=== PATIENT | female | born 1965 | race Caucasian/White ===

== ENCOUNTER 2017-08-15 13:45 | Emergency (ER) | payer OTHER ==
[~2017-08-15] VITALS: Ht 154.9 cm; Wt 61.2 kg
[2017-08-15] MEDS ORDERED: LYRICA75 M1 ORAL (13:54)
[2017-08-15] MEDS ORDERED: SIMVASTATIN10 MG ORAL (13:54)
[2017-08-15] MEDS ORDERED: CYMBALTA30 MG ORAL (13:54)
[2017-08-15] MEDS ORDERED: HYDROCHLOROTHIA25 MG ORAL (13:54)
[2017-08-15] MEDS ORDERED: OMEPRAZOLE20 M2 ORAL (13:54)
[2017-08-15 14:01] VITALS: BP 159/66
[2017-08-15] MEDS ORDERED: Norco 5mg/325mg tab ORAL ONE (14:15)
--- NOTE | 2017-08-15 14:19 | Emergency Room Report ---
History of Present Illness General Chief Complaint: Pain Source: Patient Present Illness HPI 51-year-old female patient presents to ER complaining of right forearm and wrist pain since Sunday. Patient reports that she was working in her garden when suddenly she began to experience pain in her right wrist and forearm. Patient reports she has been icing her arm since that time without relief of symptoms. Patient reports lives in a woman's home and has household duties that she normally performs, states does not believe will be able to do due to pain, requesting work note. Patient reports history of fibromyalgia and connective tissue disorder, reports diagnosis was changed, currently being seen by youth director, states next appointment set for 3 months from now. Patient reports decreased range of motion secondary to pain. Patient denies other acute symptoms at this time. patient wants to know if we can perform MRI. Allergies: Coded Allergies: PENICILLINS (Verified Allergy, Unknown, 08/15/17) Patient History Past Medical History: see triage record Last Menstrual Period: 2006 Reviewed Nursing Documentation: PMH: Agreed; PSxH: Agreed Review of Systems All Other Systems: negative except mentioned in HPI Physical Exam Vital Signs Date Time Temp Pulse Resp B/P (MAP) Pulse Ox O2 Delivery O2 Flow Rate FiO2 08/15/17 13:48 98.8 99 18 159/66 96 Room Air 98.8 Sp02 EP Interpretation: reviewed, normal General Appearance: well appearing, no apparent distress, alert, GCS 15, non- toxic Head: normocephalic, atraumatic Eyes: bilateral eye normal inspection, bilateral eye PERRL ENT: hearing grossly normal, normal pharynx, no angioedema, normal voice, uvula midline, moist mucus membranes Neck: full range of motion Respiratory: lungs clear, normal breath sounds, no rhonchi, no respiratory distress, no accessory muscle use, no wheezing, speaking full sentences Cardiovascular #1: regular rate, rhythm, no edema Cardiovascular #2: 2+ radial (R), 2+ radial (L) Musculoskeletal: back normal, digits/nails normal, gait/station normal, decreased range of motion - secondary to pain, other - able to make fist, NVI, cap refill < 2 sec, positive Tru's tenderness, negative Tinel sign, no ecchymosis, no swelling, no snuffbox tenderness, tender Neurologic: alert, oriented x3, responsive, motor strength/tone normal, sensory intact Psychiatric: mood/affect normal Skin: no rash Lymphatic: no adenopathy Medical Decision Making PA Attestation Dr. Morales is my supervising Physician whom patient management has been discussed with. Diagnostic Impression: Primary Impression: Tenosynovitis, de Quervain ER Course Pt. presents to the ED c/o right wrist and forearm pain. Ddx considered but are not limited to fracture, sprain, strain, contusion, dislocation. Vital signs: are WNL, pt. is afebrile Ordered X-ray and pain medication. ER COURSE Provided with pain medication. CURES reviewed, will provide [place] in ER, will not discharge home with Rx for [place]. Patient reports has [place] at home still. Informed patient MRI not indicated for patient in ER, need outpatient referral as needed from PCP or orthopedist. An X-ray of the right wrist was ordered, results show no acute fracture, per the preliminary reading. Thumb spica manufactured Splint was applied to the right wrist and was checked afterwards by me showing good alignment and support with distal neurovascular functioning intact. Due to no acute injury or fall, informed patient injury likely due to repetitive use, probably irritation of tendon, needs rest, ice and NSAIDs for pain. follow-up with primary care provider and discuss further referral and treatment as needed. Patient instructed on RICE method: rest, ice, compression, elevation. Patient instructed to WBAT. Work note provided. Informed patient need note from PCP for longer than 3 days excused absence from work. Followup with primary care provider for medical clearance to return to activities. Discuss referral to ortho/pain management/PT as needed. Discuss further imaging with MRI/CT as needed. DISCHARGE: -Rx provided for Tylenol for pain symptoms. At this time pt. is stable for d/c to home. Patient is resting comfortably, in no acute distress, nontoxic appearing, talking without difficulty. Will provide printed patient care instructions, and any necessary prescriptions. Patient instructed to follow with primary care provider in 3 - 5 days and to request further orthopedic follow-up. Care plan and follow up instructions have been discussed with the patient prior to discharge. Take medications as directed. Patient questions asked and answered. Patient reports understanding and agreement to treatment plan. ER precautions given, patient instructed to return to ER immediately for any new or worsening of symptoms. - Please note that this Emergency Department Report was dictated using Dragon environmental protection specialist technology software, occasionally this can lead to erroneous entry secondary to interpretation by the dictation equipment. Other X-Ray Diagnostic Results Other X-Ray Diagnostic Results : X-Ray ordered: right wrist # of Views/Limited Vs Complete: 3 View Indication: Pain EP Interpretation: Yes PA Xray: Interpretation reviewed, by supervising MD, and agrees with findings. Interpretation: no dislocation, no soft tissue swelling, no fractures Impression: No acute disease PA Scribe Text Edgardo Edwards PA-C Last Vital Signs Date Time Temp Pulse Resp B/P (MAP) Pulse Ox O2 Delivery O2 Flow Rate FiO2 08/15/17 14:01 98.8 18 159/66 96 Room Air 98.8 08/15/17 13:48 99 Disposition: HOME, SELF-CARE Condition: Stable Scripts Acetaminophen* (TYLENOL EXTRA STRENGTH*) 500 Mg Tablet 500 MG ORAL Q8H PRN for Prn Headache/Temp > 101, #30 TAB 0 Refills Prov: Oziel Edwards 08/15/17 Referrals: NON PHYSICIAN (PCP) Patient Instructions: De Quervain Tenosynovitis, De Quervain's Tenosynovitis Surgical Release, Wrist Pain, [id number] Additional Instructions: Patient instructed to follow up with primary care provider and discuss further referral to orthopedics. Discuss referral to physical therapy and occupational therapy. Patient instructed on RICE method: rest, ice, compression, elevation. Patient instructed to WBAT Take medications as directed. Patient questions asked and answered. ER precautions given, patient instructed to return to ER immediately for any new or worsening of symptoms. Oziel Edwards August 15, 2017 14:19
--- NOTE | 2017-08-15 15:19 | Diagnostic Imaging Report ---
Clinical Indication:Pain Technique: 3 views of the right wrist Comparison: None Findings: No acute fractures. No dislocations. The joint spaces are preserved. Impression: Negative
[2017-08-15] MEDS ORDERED: TYLENOL EXTRA500 MG ORAL (15:32)
[2017-08-15 15:53] VITALS: BP 159/66
== END 2017-08-15 15:53 | disposition home or self-care (01) ==
LOC: EMR 14:13
DX: M65.4 Radial styloid tenosynovitis [de Quervain] (principal); Z88.0 Allergy status to penicillin
CPT/HCPCS: 99283